=== PATIENT | male | born 1955 | race Caucasian/White ===

== ENCOUNTER 2016-09-10 22:32 | Emergency (ER) | payer MEDICARE, OTHER ==
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
[2016-09-10 23:23] LABS: Hematocrit 43.7 % (42.0-52.0); Hemoglobin 15.2 gm/dL (13.5-18.0); Mean Cell Volume 87.8 fl (78-100); Mean Corpuscular Hemoglobin 30.5 pg (27-31); Mean Corpuscular Hgb Conc 34.8 g/dl (32-36); Mean Platelet Volume 9.2 fl (6.0-9.5); Neutrophil # 1.8 K/mm3 (1.3-6.0); Neutrophil % 39.5 % (42-75.0); Platelet Count 276 K/mm3 (150-450); Red Blood Count 4.98 M/mm3 (4.7-6.0); Red Cell Distribution Width 11.9 % (11.5-14.0); White Blood Count 4.6 K/mm3 (4.0-10.5)
--- OUTSIDE RECORDS SUMMARY | 2016-09-10 23:23 | XMS REPORT | Continuity of Care Document ---
:1955 Author Organization [facility] ([facility]) Address [address] [place] [address] Phone [phone] Care Team Providers Name Role Phone Eitan Levi Primary Care Provider [phone] Source Comments This disclosure is being made pursuant to the Care Everywhere program, applicable federal and state laws, and may not contain all informaitonavailable regarding this patient.[facility] ([facility]) Active Allergies and Adverse Reactions Allergen Noted Date Severity Reactions Comments Phenobarbital 01/13/2013 OTHER "makes me sweat" Phenytoin Sodium Extended 01/13/2013 OTHER Makes me sweat Current Medications Prescription Sig. Disp. Refills Start Date End Date Status levETIRAcetam 1,000 mg Take 1,000 mg by Active tablet mouth 2 times daily. Indications: SEIZURES gabapentin 300 mg Take 900 mg by Active capsule mouth 3 times daily. Indications: SEIZURES divalproex 500 mg EC Take 500 mg by Active tablet mouth daily. Indications: SEIZURES divalproex 500 mg EC Take 1,000 mg by Active tablet mouth at bedtime. Indications: SEIZURES multivitamin tablet Take 1 Tab by Active mouth daily. Indications: Nutritional supplement cyanocobalamin Take 100 mcg by Active (VITAMIN B-12) 100 mcg mouth daily. tablet Indications: Nutritional supplement citalopram 20 mg Take 20 mg by Active tablet mouth daily. Indications: Depression traMADol 50 mg tablet Take 1 tablet (50 60 tablet 1 03/07/2016 Active mg total) by mouth every 6 hours as needed for Pain. silver sulfADIAZINE 1 Apply topically 2 400 g 0 03/07/2016 Active % cream times daily. Active Problems Problem Noted Date Unspecified epilepsy without mention of intractable epilepsy 01/13/2013 Last Assessment & Plan: 01/13/2013 Diagnosis is uncertain. He reports seizures since the age of 30. He lives alone but events are seen by neighbors and by local police. He reports getting dizzy, spacey and leans over and goes to knees and lays down and goes to sleep. He is here for epilepsy surgery so that he could get off medication, go to work , and not be depressed. He has been on keppra and neurontin for over 10 years but has not taken in one month. He was started on keppra this summer but has not taken in one month. He denies suicidality as he believes in God. He has not seen a psychiatrist in years as all they give him are drugs and a psychologist does nothing but ask questions. Diagnosis is uncertain: Plan: 1. EEG-video monitoring for diagnosis 2. Get old paper records 3. Advised re compliance and risk for SUDEP and injury 4. Advised that event if he were an epilepsy surgical candidate, he would probably need to remain on medications and it would not magically fix his depression 5. He was advised to call [phone] for prolems Non-compliance with treatment 01/13/2013 Last Assessment & Plan: 01/13/2013 He is not taking his anti-seizure medications. He is supposed to karina depakote 500 mg bid, gabapentin 900 mg tid and keppra 1000 mg bid. Have suggested he take 1 reliably. He chooses keppra as it is the new one. Have prescribed 1000 mg bid Alcohol use 01/13/2013 Last Assessment & Plan: 01/13/2013 Drinks up to a case or more of beer in binges every couple of weeks. He has stopped drinking for up to 10 years. Adised to stop drinking Depression 01/13/2013 Last Assessment & Plan: 01/13/2013 Complains of depression and drinking and tearing at his fingers to alleviate the pain. He thinks God can help more than mental health professionals. He denies suicidality Pain in limb 04/13/2008 Immunizations Name Dates Previously Given Next Due Tetanus Toxoid, unspecified 03/07/2016 Social History Tobacco Use Types Packs/Day Years Used Date Never Smoker Smokeless Tobacco: Never Used Alcohol Use Drinks/Week oz/Week Comments Yes 3-4 Standard drinks or equivalent 1.8 - 2.4 Last Filed Vital Signs Vital Sign Reading Time Taken Blood Pressure 161/54 03/07/2016 4:17 PM CDT Pulse 88 03/07/2016 4:17 PM CDT Temperature 36.7 C (98.1 F) 03/07/2016 4:17 PM CDT Respiratory Rate 18 03/07/2016 4:17 PM CDT Height 1.753 m (5' 9") 03/07/2016 4:17 PM CDT Weight 118.6 kg (261 lb 7.5 oz) 03/07/2016 4:17 PM CDT Body Mass Index 38.59 03/07/2016 4:17 PM CDT Oxygen Saturation 99% 03/07/2016 4:17 PM CDT Plan of Care Health Maintenance Due Date Last Done Comments HCV Screening 1955 Hepatitis B Vaccine (1 of 3 - Primary Series) 1955 Tdap Vaccine 1966 Lipid Disorder Screening 1973 Colonoscopy 01/24/2005 Prostate Cancer Screening 2005 Zoster Vaccine 2015 Influenza Vaccine: Seasonal (#1) 12/03/2015 Td Vaccine 03/07/2026 03/07/2016 Results from Last 3 Months Not on file
[2016-09-10 23:33] LABS: Urine Bilirubin Negative (NEGATIVE); Urine Blood Negative /ul (NEGATIVE); Urine Ketone Negative (NEGATIVE); Urine Nitrite Negative (NEGATIVE); Urine Protein Negative (NEGATIVE); Urine Specific Gravity <=1.005 SP.GR. (1.005-1.030); Urine Urobilinogen Normal (NORMAL)
[2016-09-10 23:39] LABS: Cocaine Ur Negative (NEGATIVE); Urine Barbiturate Negative (NEGATIVE); Urine Benzodiazepines Negative (NEGATIVE); Urine Opiates Negative (NEGATIVE); Urine PCP Negative (NEGATIVE); Urine THC Negative (NEGATIVE)
[2016-09-10 23:44] LABS: Urine Appearance Clear; Urine Bacteria None Seen; Urine Color Colorless; Urine RBC 0-5 /hpf (0-5); Urine WBC 0-5 /hpf (0-5)
[2016-09-10 23:51] LABS: ALT 21 U/L (19-67); AST 18 U/L (0-48); Albumin * 3.3 gm/dl (3.4-5.0); Alkaline Phosphatase * 62 U/L (50-170); Anion Gap 15.9 mmol/L (6.8-13.8); BUN/Creatinine Ratio 8.4 (9.0-21.6); Bilirubin, Total 0.4 mg/dL (0.0-1.1); Blood Urea Nitrogen 9 mg/dL (6-23); Ca. Corrected For Albumin 9.1 mg/dL (8.4-10.2); Calcium * 8.9 mg/dL (7.9-10.9); Carbon Dioxide 28.1 mmol/L (24-32.6); Chloride 100 mmol/L (97-106); Glucose * 95 mg/dL (70-110); Salicylate Less than 2.8 mg/dL (2.8-20.0); Sodium 140 mmol/L (132-142); TSH * 2.333 uIU/mL (0.358-3.74); Total Protein 6.9 gm/dL (6.2-8.2)
[2016-09-11 08:58] LABS: Valproic Acid 12.4 mcg/mL (50.0-100.0)
[2016-09-11 11:27] VITALS: BP 144/102
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
== END 2016-09-11 12:05 | disposition home or self-care (01) ==
LOC: ER 22:32
DX: R45.851 Suicidal ideations (principal); F10.20 Alcohol dependence, uncomplicated; Y90.7 Blood alcohol level of 200-239 mg/100 ml; F33.1 Major depressive disorder, recurrent, moderate
CPT/HCPCS: 36415; 80053; 80164; 80307; 81001; 84443; 85025; 93005; 99282; 99284; G0480; G0481

== ENCOUNTER 2018-10-21 16:56 | Observation (INO) ==
[2018-10-21] MEDS ORDERED: LORazepam 2 MG/ML DISP.SYRIN ONE (17:04)
[2018-10-21] MEDS ORDERED: LORazepam 2 MG/ML DISP.SYRIN IV ONE ×2 (17:13→17:53)
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
[2018-10-21 17:31] LABS: Hematocrit 40.9 % (42.0-52.0); Hemoglobin 13.7 gm/dL (13.5-18.0); Mean Cell Volume 90.5 fl (78-100); Mean Corpuscular Hemoglobin 30.3 pg (27-31); Mean Corpuscular Hgb Conc 33.5 g/dl (32-36); Mean Platelet Volume 8.9 fl (8-11.3); Neutrophil # 3.2 K/mm3 (1.3-6.0); Platelet Count 296 K/mm3 (150-450); Red Blood Count 4.52 M/mm3 (4.7-6.0); Red Cell Distribution Width 12.3 % (11.5-14.0); White Blood Count 5.5 K/mm3 (4.0-10.5)
[2018-10-21 18:46] LABS: Cocaine Ur Negative (NEGATIVE); Urine Barbiturate Negative (NEGATIVE); Urine Benzodiazepines Positive (NEGATIVE); Urine Opiates Negative (NEGATIVE); Urine PCP Negative (NEGATIVE); Urine THC Negative (NEGATIVE)
[2018-10-21 19:02] LABS: ALT 32 U/L (19-67); AST 22 U/L (0-48); Albumin * 3.6 gm/dl (3.4-5.0); Alkaline Phosphatase * 50 U/L (50-170); BUN/Creatinine Ratio 9.4 (9.0-21.6); Bilirubin, Total 0.4 mg/dL (0.0-1.1); Blood Urea Nitrogen 10 mg/dL (6-23); Ca. Corrected For Albumin 8.9 mg/dL (8.4-10.2); Calcium * 8.9 mg/dL (7.9-10.9); Carbon Dioxide 24.8 mmol/L (24-32.6); Chloride 101 mmol/L (97-106); Glucose * 94 mg/dL (70-110); Potassium 3.8 mmol/L (3.4-4.6); Sodium 139 mmol/L (132-142); Total Protein 7.1 gm/dL (6.2-8.2)
[2018-10-21 19:29] LABS: Urine Bilirubin Negative (NEGATIVE); Urine Blood Negative /ul (NEGATIVE); Urine Ketone Negative (NEGATIVE); Urine Nitrite Negative (NEGATIVE); Urine Protein Negative (NEGATIVE); Urine Specific Gravity <=1.005 SP.GR. (1.005-1.030); Urine Urobilinogen Normal (NORMAL); Urine pH 5.5 pH (5.0-7.0)
[2018-10-21 19:38] LABS: Urine Appearance Clear (CLEAR); Urine Bacteria TRACE; Urine Color Pale Yellow; Urine RBC None Seen /hpf (0-5); Urine WBC None Seen /hpf (0-5)
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
[2018-10-22] MEDS: DIVALPROEX SODIUM 500 MG TAB.SR.24H PO SCH ×2 (00:34→11:38)
[2018-10-22] MEDS: GABAPENTIN 300 MG CAPSULE PO SCH ×3 (00:34→18:54)
[2018-10-22] MEDS ORDERED: levETIRAcetam 500 MG TABLET PO SCH (09:00)
[2018-10-22] MEDS ORDERED: CALCIUM CARBONATE 500 MG TAB.CHEW PO SCH (09:00)
[2018-10-22] MEDS ORDERED: CHOLECALCIFEROL 5,000 UNIT TABLET PO SCH (09:00)
[2018-10-22] MEDS ORDERED: FENOFIBRATE,MICRONIZED 134 MG CAPSULE PO SCH (09:00)
--- NOTE | 2018-10-22 15:58 | DS ---
(1) Seizure Problem: Acute Qualifiers: Convulsion type: unspecified Qualified Code(s): R56.9 - Unspecified convulsions (2) Acute alcohol intoxication Problem: Acute Qualifiers: Complication of substance-induced condition: with unspecified complication Qualified Code(s): F10.929 - Alcohol use, unspecified with intoxication, unspecified (3) Depression Problem: Chronic Qualifiers: Depression Type: major depressive disorder Major depression recurrence: recurrent Active/Remission status: currently active Major depression episode severity: moderate Qualified Code(s): F33.1 - Major depressive disorder, recu rrent, moderate Description of Stay: Gagan Kennedy is a 63-year-old white male who presented to the emergency room with seizures and intoxication on EtOH. He had stopped drinking alcohol last February. He said he became so depressed that he started drinking to try to relieve his emotional pain and then began having seizures. He has a long- standing history of seizures and takes both Depakote and Keppra. He admits to being depressed. He denies feeling that he has any suicidal thoughts and does not believe he is a danger to himself or others. Through the day he has sobered and is now fully awake, conversant, and hungry and I have ordered him a regular diet. His admission lab work showed his urine to be positive for benzodiazepines, amphetamines, and alcohol. Procedures Performed: none Results and Findings: Lab Pending Results 10/21/18 17:25: WBC 5.5, RBC 4.52 L, Hgb 13.7, Hct 40.9 L, MCV 90.5, MCH 30.3, MCHC 33.5, RDW 12.3, Plt Count 296, MPV 8.9, Immature Gran % (Auto) 0.20, Immature Gran # (Auto) 0.01, Neutrophils % 59.0, Lymphocytes % 30.8, Monocytes % 8.4, Eosinophils % 1.1, Basophils % 0.5, Nucleated RBC % 0.0, Neutrophils # 3.2, Lymphocytes # 1.69, Monocytes # 0.5, Eosinophils # 0.1, Absolute Basophils 0.0 10/21/18 18:25: Urine Opiates Screen Negative, Barbiturate Screen Negative, Ur Phencyclidine Scrn Negative, Urine Amphetamine Positive H, U Benzodiazepines Scrn Positive H, Urine Cocaine Screen Negative, Urine Marijuana (THC) Negative 10/21/18 18:35: Sodium 139, Plasma Sodium 139, Potassium 3.8, Chloride 101, Carbon Dioxide 24.8, Anion Gap 17.0 H, BUN 10, Creatinine 1.06, Est GFR (Non-Af Amer) 75, BUN/Creatinine Ratio 9.4, Random Glucose 94, Calcium 8.9, Calcium Adj for Albumin 8.9, Total Bilirubin 0.4, AST 22, ALT 32, Alkaline Phosphatase 50, Total Protein 7.1, Albumin 3.6, Valproic Acid Less than 3.0 L, Ethyl Alcohol 189.0 H 10/21/18 19:00: Urine Color Pale yellow, Urine Appearance Clear, Urine pH 5.5, Ur Specific [place] <=1.005, Urine Protein Negative, Urine Glucose (UA) Negative, Urine Ketones Negative, Urine Blood Negative, Urine Nitrate Negative, Urine Bilirubin Negative, Urine Urobilinogen Normal, Ur Leukocyte Esterase Negative, Urine RBC None seen, Urine WBC None seen, Ur Epithelial Cells None seen, Urine Bacteria Trace, Urine Culture Comments No culture indicated Discharge Location: Home Disposition: Home self-care Condition: Stable Face to Face Encounter completed per [facility] Guidelines: No Discharge Activity: Activity as tolerated Discharge Diet: General/regular food Referrals: Kevin Laird DO [Primary Care Provider] - Additional Patient Instructions (free text): 1. No alcohol 2. Take meds as directed 3. See me in the office in 2 weeks Complete Home Medications List: Complete Home Medication List: gabapentin 300 mg capsule 900 mg PO TID #200 cap 07/14/18 fenofibrate 160 mg tablet 160 mg PO DAILY #30 tab 07/20/18 calcium carbonate 500 mg calcium (1,250 mg) tablet 500 mg PO DAILY #30 tab 10/07/18 Cholecalciferol (Vitamin D3) [Vitamin D3] 50,000 unit PO Q7D 10/22/18 Cholecalciferol [Vitamin D] 5,000 unit PO DAILY tablet 10/22/18 Divalproex Sodium [Depakote ER] 1,000 mg PO BID #30 tab 10/22/18 Vortioxetine Hydrobromide [Trintellix] 10 mg PO DAILY #30 tablet 10/22/18 levETIRAcetam [Keppra] 1,000 mg PO BID #60 tab 10/22/18 Amb Orders for Discharge: Levetiracetam (Keppra) Time Frame: 2 Weeks, Location: Laboratory Valproic Acid Time Frame: 2 Weeks, Location: Laboratory
[2018-10-22 19:10] VITALS: BP 126/85
== END 2018-10-22 19:40 | disposition home or self-care (01) ==
LOC: ER 16:56 → MS 16:56
PROVIDERS: ADMIT Family Medicine; ATTEND Family Medicine
CPT/HCPCS: 36415; 80053; 80164; 80307; 80320; 81001; 85025; 96365; 96375; 99285; G0378; G0481